=== PATIENT | female | born 1955 | race Two or more races ===

== ENCOUNTER → 2025-02-09 | Outpatient (CLI) | payer MEDICARE, SELFPAY ==
--- NOTE | 2025-02-09 13:40 | XR_ITS ---
Examination: Bone densitometry Date and time of exam: February 09, 2025, 1350 hours INDICATIONS: Menopause age 55, personal history osteopenia Technique: Lumbar spine and hip total bone mineralization values of an calculated. Peak reference and age match control results have been displayed. Findings: Lumbar spine total bone mineralization is 0.830 gm/cm2. This is 2.0 standard deviations below peak reference. This is 0.1 standard deviations above age-matched controls. Hip total bone mineralization is 0.823 gm/cm2 This is 1.0 standard deviations below peak reference. This is 0.4 standard deviations above age-matched controls Impression: There is osteopenia based on lumbar spine measurements. There is osteopenia based on hip measurements Lumbar mineralization is decreased 2.1% compared with November 05, 2021 Hip mineralization is decreased 3.4% compared with November 05, 2021
== END | disposition home or self-care (01) ==
LOC: CDIM 13:20
PROVIDERS: PCP Family Medicine; Referring Provider Family Medicine; Visit Provider Family Medicine
DX: Z13.820 Encounter for screening for osteoporosis (principal); M85.89 Other specified disorders of bone density and structure, multiple sites
CPT/HCPCS: 77080